=== PATIENT | male | born 1990 | race Caucasian/White ===

== ENCOUNTER 2017-08-27 00:02 | Emergency (ER) | payer SELFPAY ==
[2017-08-27 00:03] VITALS: BP 139/72; PULSE 69; RESP 18; TEMP 36.4; O2SAT 100; BMI 34.2
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
[2017-08-27 00:22] VITALS: BP 130/79; PULSE 73; RESP 24; O2SAT 97
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
[2017-08-27 01:20] VITALS: PULSE 72; RESP 18; O2SAT 98
== END 2017-08-27 01:20 | disposition home or self-care (01) ==
PROVIDERS: Emergency Provider Emergency Medicine
DX: S20.211A Contusion of right front wall of thorax, initial encounter (principal); S50.02XA Contusion of left elbow, initial encounter; V86.56XA Driver of dirt bike or motor/cross bike injured in nontraffic accident, initial encounter; Y93.55 Activity, bike riding; Y92.89 Other specified places as the place of occurrence of the external cause; Y99.8 Other external cause status
CPT/HCPCS: 71101; 73080; 99282

== ENCOUNTER 2018-04-30 15:50 | Emergency (ER) | payer SELFPAY ==
[2018-04-30 15:51] VITALS: BP 151/87; PULSE 128; RESP 18; TEMP 36.8; O2SAT 99; BMI 35.5
--- NOTE | 2018-04-30 16:06 | ED.VISSUMM ---
- ER Visit Summary Date of Service: 04/30/18 Chief Complaint: [] History of Present Illness: The patient is a 28 M sore throat presents to the emergency department sore throat. The patient has a history of strep. He states he actually had about 6 months ago but it went away rather quickly. He states yesterday, he woke with a mild sore throat. He states that he had a lot of secretions and is felt like his been gagging. He had a scant cough, but states because his throat is been irritated. He is unsure if he had fever but does admit to chills. He denies any other systemic symptoms. He is otherwise healthy. Physical Examination: Exam is relatively unremarkable. There is a well-appearing male no acute distress. Oropharynx is widely patent. Uvula is midline. He does have exudates on both tonsils. There is no evidence of retropharyngeal or peritonsillar abscess. Lungs are clear bilaterally. There is no trismus or stridor. Neck is supple. Test Results: [] Emergency Department Course and Treatment: Based on the patient's history, I would treat him for strep pharyngitis. He is given his first dose of Augmentin here. Is also placed on Decadron. He states that he recently ran out of his inhaler and I will give him a refill. I have no suspicion of abscess. I do feel that he is safe for outpatient therapy. He is comfortable with this plan of care. Treatment Plan: [] Disposition: Discharge Impression: 1. Strep pharyngitis This note was generated with [employer] dictation software. It may contain incorrect words, spelling, and punctuation that were not noted in review of the chart prior to signing ED Disposition - Plan for ED Patient: Instructions: ED Strep Pharyngitis Poss Prescriptions: Amox/Clavulanate Tablet [Augmentin Tablet] 875 mg PO Q12H #20 tab Referrals: Care Physician,No Primary [Primary Care Provider] -
[2018-04-30] MEDS: Amox/Clavulanate 875 MG Tablet PO (16:38)
[2018-04-30 16:43] VITALS: BP 136/90; PULSE 93; RESP 17
== END 2018-04-30 16:48 | disposition home or self-care (01) ==
LOC: ED 16:22
PROVIDERS: Emergency Provider Emergency Medicine
DX: J02.0 Streptococcal pharyngitis (principal); Z79.899 Other long term (current) drug therapy
CPT/HCPCS: 99282